=== PATIENT | male | born 1975 | race American Indian/Alaskan Native ===

== ENCOUNTER 2018-09-27 15:38 | Emergency (ER) | payer BC ==
--- NOTE | 2018-09-27 17:45 | Emergency Department Report ---
Blank Doc - Documentation Documentation: This is a 43 y.o. male that presents with toothache and right sided facial swe lling for 3 days. He have an appointment to follow up with a oral surgeon on 10/05/18 but can no longer tolerate the pain. Fast track for further evaluation.
--- NOTE | 2018-09-27 19:48 | Emergency Department Report ---
ED ENT HPI - General Chief complaint: Dental/Oral Stated complaint: TOOTH ACHE/ABCESS Time Seen by Provider: 09/27/18 17:39 Source: patient Mode of arrival: Ambulatory Limitations: No Limitations - History of Present Illness Initial comments: Mr. Priest is a very pleasant 43 yo male with hx of "bad teeth". He has diffuse tooth decay and fracture. Has right jaw pain. Has appt with [facility] upcoming. MD complaint: tooth pain, other (tenderness left jaw) -: Gradual, week(s) (several weeks) Severity: moderate Quality: aching Consistency: constant Worsens with: eating - Related Data Previous Rx's Medication Instructions Recorded Last Taken Type Ibuprofen [Ibu] 800 mg PO QID PRN #15 tablet 09/27/18 Unknown Rx Penicillin V Potassium 500 mg PO QID 10 Days #40 tablet 09/27/18 Unknown Rx Allergies Allergy/AdvReac Type Severity Reaction Status Date / Time No Known Allergies Allergy Verified 09/27/18 17:40 ED Dental HPI - General Chief complaint: Dental/Oral Stated complaint: TOOTH ACHE/ABCESS Time Seen by Provider: 09/27/18 17:39 Source: patient Mode of arrival: Ambulatory Limitations: No Limitations - Related Data Previous Rx's Medication Instructions Recorded Last Taken Type Ibuprofen [Ibu] 800 mg PO QID PRN #15 tablet 09/27/18 Unknown Rx Penicillin V Potassium 500 mg PO QID 10 Days #40 tablet 09/27/18 Unknown Rx Allergies Allergy/AdvReac Type Severity Reaction Status Date / Time No Known Allergies Allergy Verified 09/27/18 17:40 ED Review of Systems ROS: Stated complaint: TOOTH ACHE/ABCESS Other details as noted in HPI Constitutional: denies: fever, malaise Respiratory: denies: shortness of breath, wheezing ED Past Medical Hx - Past Medical History Previous Medical History?: No - Surgical History Past Surgical History?: Yes Additional Surgical History: left knee - Social History Smoking Status: Current Every Day Smoker Substance Use Type: Alcohol - Medications Home Medications: Home Medications Medication Instructions Recorded Confirmed Last Taken Type Ibuprofen [Ibu] 800 mg PO QID PRN #15 tablet 09/27/18 Unknown Rx Penicillin V Potassium 500 mg PO QID 10 Days #40 tablet 09/27/18 Unknown Rx ED Physical Exam - General Limitations: No Limitations General appearance: alert, in no apparent distress - Head Head exam: Present: atraumatic, normocephalic - Eye Eye exam: Present: normal appearance - ENT ENT exam: Present: other (diffuse tooth decay severe with dark roots exposed in most sockets no facial or gum swelling) - Neck Neck exam: Present: normal inspection, full ROM - Neurological Exam Neurological exam: Present: alert, oriented X3 ED Course Vital Signs 09/27/18 09/27/18 15:53 17:44 Temperature 98.6 F Pulse Rate 85 87 Respiratory 16 Rate Blood Pressure 165/111 149/117 [Right] O2 Sat by Pulse 100 Oximetry ED Medical Decision Making - Medical Decision Making Mr. Priest presents with poor dentition, diffuse severe tooth decay with missing teeth. Suspect pulpitis. rx: pcn, ibuprofen Critical care attestation.: If time is entered above; I have spent that time in minutes in the direct care of this critically ill patient, excluding procedure time. ED Disposition Clinical Impression: Pulpitis, Tooth decay, Toothache Disposition: - TO HOME OR SELFCARE Is pt being admited?: No Does the pt Need Aspirin: No Condition: Stable Instructions: Dental Abscess (ED), Toothache (ED) Prescriptions: Ibuprofen [Ibu] 800 mg PO QID PRN #15 tablet PRN Reason: Pain , Severe (7-10) Penicillin V Potassium 500 mg PO QID 10 Days #40 tablet
== END 2018-09-27 20:05 | disposition home or self-care (01) ==
LOC: ED 15:38
CPT/HCPCS: 99282